=== PATIENT | male | born 1960 | race Caucasian/White ===

== ENCOUNTER 2017-06-26 06:40 | Day surgery (SDC) | payer OTHER, MEDICARE, BC ==
[2017-06-26] MEDS ORDERED: Lactated Ringers 1,000 ML IV SCH (06:45)
[2017-06-26] MEDS ORDERED: Sodium Chloride 0.9% 10 ML Syringe FLUSH PRN (06:45)
[2017-06-26] MEDS ORDERED: Midazolam 1 MG/ML 2 ML SDV IV ONE (08:00)
[2017-06-26] MEDS ORDERED: Propofol 200 MG/20 ML SDV IV ONE (08:00)
--- NOTE | 2017-06-26 08:35 | PCM.OPNOTE ---
- General Post-Op/Procedure Note Date of Surgery/Procedure: 06/26/17 Operative Procedure(s): c scope Findings: lipoma wall ascending colon Pre Op Diagnosis: screening Post-Op Diagnosis: lipoma wall ascending colon Anesthesia Technique: MAC Primary Surgeon: Hang Perez Anesthesia Provider: Diogo Franklin Pathology: none Complications: None Condition: Good Free Text/Narrative:: see dictation
--- NOTE | 2017-06-26 09:43 | OR ---
DATE OF OPERATION: 06/26/2017 SURGEON: Hang Perez MD PROCEDURE PERFORMED: Colonoscopy. PREOPERATIVE DIAGNOSIS: Need for screening C scope. POSTOPERATIVE DIAGNOSIS: Lipoma of the ascending colon. INDICATIONS FOR PROCEDURE: This is a 57-year-old white male who presents for a screening colonoscopy. His last one was 10 years ago. He was offered and accepted same. DESCRIPTION OF OPERATION: After an excellent IV sedation was administered, the digital rectal exam was performed. No marked abnormality was noted. Flexible colonoscope was inserted and advanced without difficulty to the cecum. The prep was excellent. The following findings were noted: Ascending colon, what appeared to be a lipoma was encountered. The mucosa over top of it was biopsied and we did see some fat pooch through. Specimen was not sent. Transverse colon was unremarkable. Descending colon was unremarkable. Sigmoid and rectum was unremarkable. Colon was deflated. Scope was removed. The patient tolerated the procedure well, and was taken to recovery room in good condition. Repeat scope in 10 years. /[id number] /RAULL
== END 2017-06-26 09:37 | disposition home or self-care (01) ==
LOC: FB.SDS 06:40
PROVIDERS: ATTEND Surgery
DX: Z12.11 Encounter for screening for malignant neoplasm of colon (principal); D17.5 Benign lipomatous neoplasm of intra-abdominal organs; F33.0 Major depressive disorder, recurrent, mild; I10 Essential (primary) hypertension; E78.5 Hyperlipidemia, unspecified; E11.9 Type 2 diabetes mellitus without complications; G89.29 Other chronic pain; J30.2 Other seasonal allergic rhinitis; G47.30 Sleep apnea, unspecified; Z79.82 Long term (current) use of aspirin; Z79.4 Long term (current) use of insulin; Z79.899 Other long term (current) drug therapy; Z88.8 Allergy status to other drugs, medicaments and biological substances; Z90.49 Acquired absence of other specified parts of digestive tract; Z98.890 Other specified postprocedural states; Z98.52 Vasectomy status; Z87.891 Personal history of nicotine dependence
CPT/HCPCS: 00810; 45380; 82962; J2250; J2704; J7120